=== PATIENT | male | born 1925 | race Caucasian/White ===

== ENCOUNTER 2017-03-16 18:27 | Inpatient (IN) | payer MEDICARE, BC ==
[2017-03-16] MEDS ORDERED: Acetaminophen 325 MG Tab PO PRN (20:19)
[2017-03-16] MEDS ORDERED: Enoxaparin 30 MG/0.3 ML Syringe SUBCUT SCH (20:30)
[2017-03-16] MEDS ORDERED: cefTRIAXone 1,000 MG in Sodium Chloride 0.9% 50 ML IV SCH (20:30)
[2017-03-16] MEDS ORDERED: Azithromycin 500 MG in Sodium Chloride 0.9% 250 ML IV SCH (21:00)
[2017-03-16] MEDS: Albuterol/Ipratropium 3.0-0.5 MG/3 ML Neb Soln NEB SCH (21:11)
[2017-03-16] MEDS: Sodium Chloride 0.9% 10 ML Syringe FLUSH PRN ×2 (21:14→22:56)
[2017-03-16] MEDS: guaiFENesin/Dextromethorphan 100-10 MG/5 ML Soln 5 ML Cup PO PRN (21:23)
--- NOTE | 2017-03-16 21:26 | ER ---
DATE SEEN: 03/16/2017 CHIEF COMPLAINT: Cough. HISTORY OF PRESENT ILLNESS: An 89-year-old male, who came into the ER because of a cough for 1 day that has been bothering him. He was unable to sleep because of the cough. He also feels weak and short of breath, but denies any chest pain, fever, or chills. PAST MEDICAL HISTORY: CHF, CAD, hyperlipidemia, hypertension, and colostomy. SOCIAL HISTORY: He quit smoking in 1974. REVIEW OF SYSTEMS: All other systems negative. PHYSICAL EXAMINATION: GENERAL: He appeared dry, but not in distress. VITAL SIGNS: He has a normal blood pressure and temperature. EARS, NOSE AND THROAT: Negative. NECK: Supple. CHEST: Coarse crepitations and decreased breath sounds on the right. EXTREMITIES: 2 to 3+ peripheral edema. SKIN: Mild pallor. LABORATORY DATA: Initial white cell count was 6.1. Sodium was normal and creatinine 1.4. Chest x-ray revealed a large pleural effusion on the right. IMPRESSION: Large pleural effusion, possibly congestive heart failure related or pneumonia. PLAN: Admit. Obtain a procalcitonin level. Start IV antibiotics and Lasix, and observe. Repeat labs in the morning. TIME SEEN: 1930 hours. /[id number] FELIPE/CORNEL
[2017-03-16] MEDS: Furosemide 40 MG/4 ML VIAL IVPUSH SCH (21:45)
[2017-03-17] MEDS: guaiFENesin/Dextromethorphan 100-10 MG/5 ML Soln 5 ML Cup PO PRN (01:55)
[2017-03-17] MEDS: Albuterol/Ipratropium 3.0-0.5 MG/3 ML Neb Soln NEB SCH ×4 (07:29→20:47)
[2017-03-17] MEDS ORDERED: Codeine/guaiFENesin 100-10 MG/5 ML Syrup 5 ML Cup PO PRN (08:21)
--- NOTE | 2017-03-17 08:29 | PCM.HP ---
H&P History of Present Illness - General Date of Service: 03/17/17 Admit Problem/Dx: Admission Diagnosis/Problem Admission Diagnosis/Problem CHF, Congestive heart failure Source of Information: Patient, Old Records History Limitations: Reports: No Limitations - History of Present Illness Initial Comments - Free Text/Narative: 89-year-old to the ER because of a cough. I saw him emergency room last night- his main complaint is a cough about 1-2 days cough is dry and deep constant paroxysmal to the point is unable to sleep. Is nonproductive. He complains of no fever or chills headache, he also did have shortness of breath on ambulation. He has a history of coronary disease status post 6 bypass surgery 2007. He was has a history of smoking but quit in 1974. He reports that he has ongestive heart failure, with an estimated preserved ejection fraction of about 40%. He also does have a history of sarcoidosis which has been previously in remission. headache Pain Score (Numeric/FACES): 2 - Related Data Allergies/Adverse Reactions: Allergies Allergy/AdvReac Type Severity Reaction Status Date / Time bacitracin Allergy Itching Verified 03/16/17 19:48 [From Neosporin ([id number])] bacitracin zinc Allergy Itching Verified 03/16/17 19:48 [From Neosporin ([id number])] neomycin sulfate Allergy Itching Verified 03/16/17 19:48 [From Neosporin ([id number])] polymyxin B Allergy Itching Verified 03/16/17 19:48 [From Neosporin ([id number])] Home Medications: Home Meds Lisinopril 10 mg PO DAILY 02/02/13 [History] Omeprazole [Prilosec] 20 mg PO DAILY 02/02/13 [History] amLODIPine Besylate [Amlodipine Besylate] 2.5 mg PO BEDTIME 02/02/13 [History] Carvedilol [Coreg] 6.25 mg PO BID #60 tablet 10/06/13 [Rx] Rosuvastatin [Crestor] 20 mg PO BEDTIME 09/24/14 [History] Furosemide [Lasix] 20 mg PO 12 03/16/17 [History] Furosemide [Lasix] 40 mg PO 08 03/16/17 [History] Past Medical History Cardiovascular History: Reports: Bypass, Heart Failure, High Cholesterol, Hypertension, [place], SOB on Exertion Respiratory History: Reports: SOB Musculoskeletal History: Reports: Osteoarthritis Neurological History: Reports: Concussion Oncologic (Cancer) History: Reports: Basal Cell Carcinoma Dermatologic History: Reports: Other (See Below) Other Dermatologic History: cancerous spots removed from right cheek, left ear and lip - Infectious Disease History Infectious Disease History: Reports: Chicken Pox, Measles, Pertussis (Whooping Cough), Shingles - Past Surgical History Cardiovascular Surgical History: Reports: Coronary Artery Bypass Other Cardiovascular Surgeries/Procedures: bypass x 6 GI Surgical History: Reports: Cholecystectomy, Colon, Colostomy, Other (See Below) Other GI Surgeries/Procedures: cancer of the colon 1997 Musculoskeletal Surgical History: Reports: Shoulder Surgery Other Musculoskeletal Surgeries/Procedures:: right. back surgery in 1968. little fingers have contractures Social & Family History - Family History Family Medical History: Noncontributory - Tobacco Use Smoking Status *Q: Former Smoker Years of Tobacco use: 28 Used Tobacco, but Quit: Yes Month Tobacco Last Used: 1974 Second Hand Smoke Exposure: No - Caffeine Use Caffeine Use: Reports: Coffee Other Caffeine Use: 2-3 cups daily - Alcohol Use Days Per Week of Alcohol Use: 7 Number of Drinks Per Day: 1 Total Drinks Per Week: 7 - Recreational Drug Use Recreational Drug Use: No - Living Situation & Occupation Living situation: Reports: Occupation: Retired H&P Review of Systems - Review of Systems: Review Of Systems: ROS reveals no pertinent complaints other than HPI. Exam - Exam Exam: See Below - Vital Signs Vital Signs: Last Vital Signs Temp 98.3 F 03/16/17 23:55 Pulse 81 03/16/17 23:55 Resp 20 03/16/17 23:55 BP 133/75 03/16/17 23:55 Pulse Ox 94 L 03/16/17 23:55 Weight: 75.387 kg - Exam Quality Assessment: Supplemental Oxygen General: Alert, Oriented, 4 HEENT: PERRLA, Hearing Intact, Mucosa Moist & [place], Nares Patent, Normal Nasal Septum, Posterior Pharynx Clear, Conjunctiva Clear, EOMI, EACs Clear, TMs Clear Neck: Supple, Trachea Midline, 2 Lungs: Decreased Breath Sounds, Crackles Cardiovascular: Regular Rate, Regular Rhythm GI/Abdominal Exam: Normal Bowel Sounds, Soft, Non-Tender, No Organomegaly, No Distention, No Abnormal Bruit, No Mass, Pelvis Stable (Male) Exam: No Hernia, Normal Inspection, Normal Prostate, Circumcised Rectal (Males) Exam: Deferred Back Exam: Normal Inspection, Full Range of Motion, NT Extremities: Pedal Edema Skin: Warm, Dry, Intact Neurological: Cranial Nerves Intact, Reflexes Equal Bilateral Neuro Extensive - Mental Status: Alert, Oriented x3, Normal Mood/Affect, Normal Cognition Neuro Extensive - Motor, Sensory, Reflexes: CN II-XII Intact, Normal Gait, Normal Reflexes Psychiatric: Alert, Normal Affect, Normal Mood - Patient Data Lab Results Last 24 hrs: Laboratory Results - last 24 hr 03/17/17 03/17/17 Range/Units 06:40 06:40 WBC 8.8 (4.5-12.0) X10-3/uL RBC 3.72 L (4.30-5.75) x10(6)uL Hgb 12.0 (11.5-15.5) g/dL Hct 35.2 (30.0-51.3) % MCV 94.8 (80-96) fL MCH 32.3 (27.7-33.6) pg MCHC 34.1 (32.2-35.4) g/dL RDW 14.0 (11.5-15.5) % Plt Count 138 (125-369) X10(3)uL MPV 9.6 (7.4-10.4) fL Neut % (Auto) 79.6 (46-82) % Lymph % (Auto) 11.1 L (13-37) % Thayer % (Auto) 7.8 (4-12) % Eos % (Auto) 1 (1.0-5.0) % Baso % (Auto) 1 (0-2) % Neut # (Auto) 6.9 (1.6-8.3) # Lymph # (Auto) 1.0 (0.6-5.0) # Thayer # (Auto) 0.7 (0.0-1.3) # Eos # (Auto) 0.1 (0.0-0.8) # Baso # (Auto) 0.1 (0.0-0.2) # Sodium 137 (135-145) mmol/L Potassium 3.3 L (3.5-5.3) mmol/L Chloride 100 (100-110) mmol/L Carbon Dioxide 26 (23-29) mmol/L BUN 21 (8-23) mg/dL Creatinine 1.4 H (0.6-1.3) mg/dL Est Cr Clr Drug Dosing 35.77 mL/min Estimated GFR (MDRD) 48 L (>60) BUN/Creatinine Ratio 15.0 (9-20) Glucose 113 (80-116) mg/dL Calcium 9.1 (8.6-10.2) mg/dL Result Diagrams: 03/17/17 06:40 03/17/17 06:40 EKG INTERPRETATION Rhythm: A-Fib *Q Meaningful Use (ADM) - VTE *Q VTE Criteria *Q: - Stroke *Q Stroke Criteria *Q: - AMI *Q AMI Criteria *Q: - Problem List (1) Cough SNOMED Code(s): 50413951 ICD Code: R05 - COUGH Status: Acute Current Visit: Yes (2) CHF, Congestive heart failure SNOMED Code(s): 34102167 ICD Code: I50.9 - HEART FAILURE, UNSPECIFIED Status: Acute Priority: High Current Visit: No (3) Pleural effusion SNOMED Code(s): 21909003 ICD Code: J90 - PLEURAL EFFUSION, NOT ELSEWHERE CLASSIFIED Status: Acute Priority: High Current Visit: No (4) Colostomy present SNOMED Code(s): 307463011 ICD Code: Z93.3 - COLOSTOMY STATUS Status: Chronic Priority: Medium Current Visit: No (5) Coronary artery bypass grafting SNOMED Code(s): 978576959 - Coronary artery bypass grafting Status: Chronic Priority: High Current Visit: No (6) HTN, Essential hypertension SNOMED Code(s): 68504011 ICD Code: I10 - ESSENTIAL (PRIMARY) HYPERTENSION Status: Chronic Priority : High Current Visit: No (7) Hyperlipidemia SNOMED Code(s): 54543876 ICD Code: E78.5 - HYPERLIPIDEMIA, UNSPECIFIED Status: Chronic Priority: Medium Current Visit: No (8) Sarcoidosis SNOMED Code(s): 08818731 ICD Code: D86.9 - SARCOIDOSIS, UNSPECIFIED Status: Acute Current Visit: Yes (9) Aortic stenosis SNOMED Code(s): 85835737 ICD Code: I35.0 - NONRHEUMATIC AORTIC (VALVE) STENOSIS Status: Acute Current Visit: Yes Qualifiers: Cardiac valve disease etiology: etiology unspecified Qualified Code(s): I35.0 - Nonrheumatic aortic (valve) stenosis Problem List Initiated/Reviewed/Updated: Yes Orders Last 24hrs: Active Orders 24 hr Category Date Time Status Patient Status [ADT] Routine ADT 03/16/17 20:20 Active Intake and Output [RC] 06,14,22 Care 03/16/17 20:21 Active Oxygen Therapy [RC] PRN Care 03/16/17 20:20 Active RT Aerosol Therapy [RC] 07,,16,21 Care 03/16/17 20:23 Active Up With Assistance [RC] ASDIRECTED Care 03/16/17 20:19 Active Vital Signs [RC] 08,16,00 Care 03/16/17 20:19 Active Echo Comp wo Cont [US] Urgent Exams 03/17/17 08:21 Ordered CULTURE SPUTUM + SMEAR [] Stat Lab 03/17/17 06:50 Received Acetaminophen [Tylenol] Med 03/16/17 20:19 Active 650 mg PO Q4H PRN Albuterol/Ipratropium [DuoNeb 3.0-0.5 MG/3 ML] Med 03/16/17 21:00 Active 3 ml NEB QIDRT Codeine/guaiFENesin [Robitussin AC] Med 03/17/17 08:21 Ordered 10 ml PO Q6H PRN Dextromethorphan/guaiFENesin [Robitussin DM] Med 03/16/17 21:02 Active 10 ml PO Q4H PRN Enoxaparin [Lovenox] Med 03/17/17 21:00 Active 30 mg SUBCUT Q24H Furosemide [Lasix] Med 03/16/17 21:00 Active 40 mg IVPUSH BIDDIURETIC predniSONE Med 03/17/17 09:00 Ordered 20 mg PO BID Resuscitation Status Routine Resus Stat 03/16/17 20:19 Ordered Medication Orders Acetaminophen (Tylenol) 650 mg PO Q4H PRN PRN Reason: Pain (Mild 1-3)/fever Albuterol/Ipratropium (Duoneb 3.0-0.5 Mg/3 Ml) 3 ml NEB QIDRT JANINE Last Admin: 03/17/17 07:29 Dose: 3 ml Admin: 03/16/17 21:11 Dose: 3 ml Enoxaparin Sodium (Lovenox) 30 mg SUBCUT Q24H JANINE Furosemide (Lasix) 40 mg IVPUSH BIDDIURETIC JANINE Last Admin: 03/16/17 21:45 Dose: 40 mg Guaifenesin/Codeine Phosphate (Robitussin Ac) 10 ml PO Q6H PRN PRN Reason: Cough Guaifenesin/Phenylephrine HCl (Robitussin Dm) 10 ml PO Q4H PRN PRN Reason: Cough Last Admin: 03/17/17 01:55 Dose: 10 ml Admin: 03/16/17 21:23 Dose: 10 ml Prednisone (Prednisone) 20 mg PO BID JANINE Sodium Chloride (Saline Flush) 10 ml FLUSH ASDIRECTED PRN PRN Reason: Keep Vein Open Last Admin: 03/16/17 22:56 Dose: 10 ml Admin: 03/16/17 21:14 Dose: 10 ml Assessment/Plan Comment:: I ordered a procalcitonin level that was normal. Slight hydrated doubt that he has a bacterial infection. Of distal continued antibiotics, instead I will start prednisone 20 mg twice a day, Robitussin with codeine to help with the cough, and continue Lasix. I was asked that we obtain a 2-D echocardiogram to evaluate for his aortic stenosis and heart failure. Because of his previous history of smoking, electrical malignancy, as such I requested for thoracentesis for the pleural fluid
[2017-03-17] MEDS: Sodium Chloride 0.9% 10 ML Syringe FLUSH PRN ×2 (09:00→14:28)
[2017-03-17] MEDS: Furosemide 40 MG/4 ML VIAL IVPUSH SCH ×2 (09:00→14:29)
[2017-03-17] MEDS: Pantoprazole 40 MG Tab.CR PO SCH (09:52)
[2017-03-17] MEDS: predniSONE 20 MG Tab PO SCH ×2 (09:52→18:26)
[2017-03-17] MEDS: Carvedilol 12.5 MG Tab PO SCH ×2 (09:54→18:26)
--- NOTE | 2017-03-17 11:26 | CR ---
INDICATION: Shortness of breath. CHEST: An AP upright view of the chest, 03/16/2017, was compared with 2013 and 02/02/2013, and revealed apparent pleuroparenchymal changes at the right lung base, which may be on the basis of a large pleural effusion and possibly pneumonia with pleuritis. The heart is enlarged. Pulmonary vasculature is prominent. Interstitial markings appear somewhat prominent, suggesting CHF with interstitial lung edema. Overlying EKG leads are noted. Evidence of previous median sternotomy is again noted. The aorta is again noted to be tortuous with calcification in the arch. IMPRESSION: 1. ASHD, cardiomegaly, CHF, probable interstitial lung edema. 2. Large right pleural effusion with parenchymal changes which may be on the basis of atelectasis, as well as pneumonia with pleuritis. Correlate clinically. MTDD
[2017-03-17] MEDS: Potassium Chloride 20 MEQ Tab.ER PO SCH ×2 (11:40→20:47)
--- NOTE | 2017-03-17 17:30 | PCM.SN ---
- Free Text/Narrative Note: Was asked to see pt for possible thoracentesis. Pt would like to hold off and see if effusion goes away. Please reconsult as needed. Thank you.
[2017-03-17] MEDS ORDERED: Rosuvastatin 10 MG Tab PO SCH (21:00)
[2017-03-17] MEDS ORDERED: Enoxaparin 30 MG/0.3 ML Syringe SUBCUT SCH (21:00)
[2017-03-18] MEDS: Pantoprazole 40 MG Tab.CR PO SCH (05:59)
[2017-03-18] MEDS: Albuterol/Ipratropium 3.0-0.5 MG/3 ML Neb Soln NEB SCH ×2 (07:17→10:47)
[2017-03-18 07:47] VITALS: BP 118/65
[2017-03-18] MEDS: Carvedilol 12.5 MG Tab PO SCH (08:17)
[2017-03-18] MEDS: predniSONE 20 MG Tab PO SCH (08:18)
[2017-03-18] MEDS: Potassium Chloride 20 MEQ Tab.ER PO SCH (08:19)
[2017-03-18] MEDS: Furosemide 40 MG/4 ML VIAL IVPUSH SCH ×2 (08:43→14:00)
--- NOTE | 2017-03-18 09:21 | PCM.PN ---
- General Info Date of Service: 03/18/17 Admission Dx/Problem (Free Text): Patient reports marked improvement of his cough and shortness of breath since yesterday. He feels strong enough to be discharged. No fevers been reported. He declined thoracentesis yesterday. Functional Status: Reports: Pain Controlled, Tolerating Diet, Incentive Spirometry - Review of Systems General: Reports: No Symptoms HEENT: Reports: No Symptoms Pulmonary: Reports: Cough, Sputum. Denies: Hemoptysis Cardiovascular: Reports: No Symptoms - Patient Data Vitals - Most Recent: Last Vital Signs Temp 97.7 F 03/18/17 07:45 Pulse 69 03/18/17 08:17 Resp 16 03/18/17 07:45 BP 118/65 03/18/17 08:17 Pulse Ox 95 03/18/17 07:45 Weight - Most Recent: 75.478 kg I&O - Last 24 Hours: Intake & Output 03/17/17 03/18/17 03/18/17 22:59 06:59 14:59 Intake Total 500 50 Output Total 750 225 Balance -250 -175 Lab Results Last 24 Hours: Laboratory Results - last 24 hr 03/18/17 03/18/17 Range/Units 06:22 06:22 WBC 6.6 (4.5-12.0) X10-3/uL RBC 3.73 L (4.30-5.75) x10(6)uL Hgb 12.4 (11.5-15.5) g/dL Hct 35.5 (30.0-51.3) % MCV 95.1 (80-96) fL MCH 33.2 (27.7-33.6) pg MCHC 34.9 (32.2-35.4) g/dL RDW 13.8 (11.5-15.5) % Plt Count 138 (125-369) X10(3)uL MPV 10.0 (7.4-10.4) fL Neut % (Auto) 84.3 H (46-82) % Lymph % (Auto) 11.4 L (13-37) % Hart % (Auto) 4.2 (4-12) % Eos % (Auto) 0 L (1.0-5.0) % Baso % (Auto) 0 (0-2) % Neut # (Auto) 5.5 (1.6-8.3) # Lymph # (Auto) 0.8 (0.6-5.0) # Hart # (Auto) 0.3 (0.0-1.3) # Eos # (Auto) 0.0 (0.0-0.8) # Baso # (Auto) 0.0 (0.0-0.2) # Sodium 136 (135-145) mmol/L Potassium 3.7 (3.5-5.3) mmol/L Chloride 99 L (100-110) mmol/L Carbon Dioxide 26 (23-29) mmol/L BUN 30 H (8-23) mg/dL Creatinine 1.5 H (0.6-1.3) mg/dL Est Cr Clr Drug Dosing 33.39 mL/min Estimated GFR (MDRD) 44 L (>60) BUN/Creatinine Ratio 20.0 (9-20) Glucose 150 H (80-116) mg/dL Calcium 8.8 (8.6-10.2) mg/dL NT-Pro-B Natriuret Pep 21969 H (5-450) pg/mL August Results Last 24 Hours: Microbiology 03/17/17 06:50 Gram Stain - Final Sputum - Expectorated Sputum Culture - Preliminary Normal Cyndie Med Orders - Current: Current Medications Acetaminophen (Tylenol) 650 mg PO Q4H PRN PRN Reason: Pain (Mild 1-3)/fever Albuterol/Ipratropium (Duoneb 3.0-0.5 Mg/3 Ml) 3 ml NEB QIDRT [facility] Last Admin: 03/18/17 07:17 Dose: 3 ml Carvedilol (Coreg) 12.5 mg PO BIDMEALS [facility] Last Admin: 03/18/17 08:17 Dose: 12.5 mg Enoxaparin Sodium (Lovenox) 30 mg SUBCUT Q24H [facility] Last Admin: 03/17/17 20:47 Dose: 30 mg Furosemide (Lasix) 40 mg IVPUSH BIDDIURETIC [facility] Last Admin: 03/18/17 08:43 Dose: 40 mg Guaifenesin/Codeine Phosphate (Robitussin Ac) 10 ml PO Q6H PRN PRN Reason: Cough Guaifenesin/Phenylephrine HCl (Robitussin Dm) 10 ml PO Q4H PRN PRN Reason: Cough Last Admin: 03/17/17 01:55 Dose: 10 ml Pantoprazole Sodium (Protonix) 40 mg PO DAILY@0600 [facility] Last Admin: 03/18/17 05:59 Dose: 40 mg Potassium Chloride (Klor-Con M20) 20 meq PO BID [facility] Last Admin: 03/18/17 08:19 Dose: 20 meq Prednisone (Prednisone) 20 mg PO BIDMEALS [facility] Last Admin: 03/18/17 08:18 Dose: 20 mg Rosuvastatin Calcium (Crestor) 20 mg PO BEDTIME [facility] Last Admin: 03/17/17 20:47 Dose: 20 mg Sodium Chloride (Saline Flush) 10 ml FLUSH ASDIRECTED PRN PRN Reason: Keep Vein Open Last Admin: 03/17/17 14:28 Dose: 10 ml Discontinued Medications Enoxaparin Sodium (Lovenox) 30 mg SUBCUT QPM [facility] Last Admin: 03/16/17 21:11 Dose: 30 mg Azithromycin 500 mg/ Sodium (Chloride) 250 mls @ 250 mls/hr IV Q24H [facility] Last Admin: 03/16/17 21:54 Dose: 250 mls/hr Ceftriaxone Sodium 1,000 mg/ (Sodium Chloride) 50 mls @ 100 mls/hr IV Q24H [facility] Last Admin: 03/16/17 21:13 Dose: 100 mls/hr - Exam Quality Assessment: Supplemental Oxygen General: Alert, Oriented, Cooperative HEENT: Pupils Equal, Pupils Reactive, EOMI, Mucous Membr. Moist/[place] Neck: Supple Lungs: Clear to Auscultation, Normal Respiratory Effort, Crackles, Rales Cardiovascular: Regular Rate, Regular Rhythm Extremities: No Pedal Edema - Problem List & Annotations (1) Cough SNOMED Code(s): 35115611 Code(s): R05 - COUGH Status: Acute Current Visit: Yes (2) CHF, Congestive heart failure SNOMED Code(s): 79985858 Code(s): I50.9 - HEART FAILURE, UNSPECIFIED Status: Acute Priority: High Current Visit: No (3) Pleural effusion SNOMED Code(s): 59012853 Code(s): J90 - PLEURAL EFFUSION, NOT ELSEWHERE CLASSIFIED Status: Acute Priority: High Current Visit: No (4) Colostomy present SNOMED Code(s): 233475036 Code(s): Z93.3 - COLOSTOMY STATUS Status: Chronic Priority: Medium Current Visit: No (5) Coronary artery bypass grafting SNOMED Code(s): 748742945 - Coronary artery bypass grafting Status: Chronic Priority: High Current Visit: No (6) HTN, Essential hypertension SNOMED Code(s): 04965653 Code(s): I10 - ESSENTIAL (PRIMARY) HYPERTENSION Status: Chronic Priority : High Current Visit: No (7) Hyperlipidemia SNOMED Code(s): 72135166 Code(s): E78.5 - HYPERLIPIDEMIA, UNSPECIFIED Status: Chronic Priority: Medium Current Visit: No (8) Sarcoidosis SNOMED Code(s): 89548172 Code(s): D86.9 - SARCOIDOSIS, UNSPECIFIED Status: Acute Current Visit: Yes (9) Aortic stenosis SNOMED Code(s): 03980283 Code(s): I35.0 - NONRHEUMATIC AORTIC (VALVE) STENOSIS Status: Acute Current Visit: Yes Qualifiers: Cardiac valve disease etiology: etiology unspecified Qualified Code(s): I35.0 - Nonrheumatic aortic (valve) stenosis - Problem List Review Problem List Initiated/Reviewed/Updated: Yes - My Orders Last 24 Hours: My Active Orders 03/17/17 08:21 Codeine/guaiFENesin [Robitussin AC] 10 ml PO Q6H PRN 03/17/17 09:00 Carvedilol [Coreg] 12.5 mg PO BIDMEALS Pantoprazole [ProTONIX] 40 mg PO DAILY@0600 predniSONE 20 mg PO BIDMEALS 03/17/17 10:45 Potassium Chloride [Klor-Con M20] 20 meq PO BID 03/17/17 21:00 Enoxaparin [Lovenox] 30 mg SUBCUT Q24H Rosuvastatin [Crestor] 20 mg PO BEDTIME 03/18/17 07:00 Echo Comp wo Cont [US] Urgent - Plan Plan:: Patient level II-D echocardiogram today. I feel that is able to go back home, prednisone, and oral diuretics. He may also need home O2. I've asked respiratory therapy to organize for it.
--- NOTE | 2017-03-18 16:01 | DISCH ---
DISCHARGE DATE: 03/18/2017 REASON FOR ADMISSION: 1. Community-acquired pneumonia. 2. CHF. 3. Pleural effusion. 4. Hypertension. 5. History of coronary artery disease. DISCHARGE DIAGNOSES: 1. Sarcoidosis. 2. Pulmonary fibrosis. 3. Congestive heart failure. 4. Coronary artery disease. 5. Hypertension. BRIEF HISTORY AND HOSPITAL COURSE: This is an 89-year-old male who came in because of shortness of breath and cough for 2 days. He has a history of coronary artery disease and remote history of sarcoidosis. He had a large pleural effusion, treated initially with antibiotics on suspicion of pneumonia; however, he did not have a fever, white cell count and procalcitonin level was negative. Antibiotics were discontinued after the 1st day and he was placed on prednisone and Robitussin codeine, which helped his cough significantly. He did remain on 1 L of oxygenation by nasal cannula, but by the time of discharge, he was tolerating room air. I discharged him on prednisone 20 mg b.i.d. for 5 days. He will go home on Lasix 20 mg a day b.i.d. He will also return home with his home medications of carvedilol 12.5 mg b.i.d. and Crestor 20 mg a day. FOLLOWUP: The patient will see his physician in the next 1 week. Return to the ER with any worsening symptoms. I spent more than 35 minutes in the discharge of the patient. /[id number] [place]/MODL ADDENDUM: Please note that the respiratory therapist evaluated Mr. Alegre for home O2, and he was walking the ye, several steps, on room air and remained in the low 90s. As such, he did not qualify for oxygenation. I will discharge the patient home today on prednisone and albuterol treatments. He will follow up with his PCP next week on Friday. /[id number] [place]/MODL [facility]
== END 2017-03-18 14:10 | disposition home or self-care (01) | DRG 196 ==
LOC: FB.ED 18:27 → FB.MS 19:52
PROVIDERS: ADMIT Family Medicine; ATTEND Family Medicine
DX: J18.9 Pneumonia, unspecified organism (principal); D86.9 Sarcoidosis, unspecified; I50.33 Acute on chronic diastolic (congestive) heart failure; I11.0 Hypertensive heart disease with heart failure; I25.10 Atherosclerotic heart disease of native coronary artery without angina pectoris; R05 Cough; R53.1 Weakness; R06.02 Shortness of breath; E78.5 Hyperlipidemia, unspecified; Z87.891 Personal history of nicotine dependence; I35.0 Nonrheumatic aortic (valve) stenosis; Z93.3 Colostomy status; Z95.1 Presence of aortocoronary bypass graft; I25.2 Old myocardial infarction; M19.90 Unspecified osteoarthritis, unspecified site; Z85.828 Personal history of other malignant neoplasm of skin; Z85.038 Personal history of other malignant neoplasm of large intestine; Z79.82 Long term (current) use of aspirin; Z79.52 Long term (current) use of systemic steroids; Z88.8 Allergy status to other drugs, medicaments and biological substances; J84.10 Pulmonary fibrosis, unspecified
CPT/HCPCS: 36415; 71010; 80048; 83880; 84145; 84484; 85025; 87070; 87205; 93005; 93306; 94640; 99284; 99285; A9270-GY; J0456; J0696; J1650; J1940; J7050; J7620